=== PATIENT | female | born 1955 | race Caucasian/White ===

== ENCOUNTER 2022-04-28 07:46 | Observation (INO) ==
--- NOTE | 2022-04-09 11:09 | PAT Medication Instructions ---
Medication Instructions Date of Service April 09, 2022 Home Medications Magnesium 1 tab PO QPM aspirin 81 mg tablet,delayed release 81 mg PO QPM calcium cit 250 mg-mag 40 mg-D3 125 unit-zinc 3.75 mg-helicopter technician-compa tablet (Calcium Citrate Plus) 1 tab PO QPM diclofenac sodium 1 % topical gel 2 g topical BID docusate sodium 250 mg capsule (Stool Softener) 250 mg PO QPM ibuprofen 200 mg capsule 200 mg PO Q6H PRN levothyroxine 75 mcg tablet 75 mcg PO QAM multivitamin 1 tab PO QPM ASK your surgeon for instructions ibuprofen 200 mg capsule 200 mg PO Q6H PRN STOP taking 24 hours before surgery diclofenac sodium 1 % topical gel 2 g topical BID Take morning of surgery With a small sip of water, OTHERWISE NOTHING TO EAT OR DRINK AFTER MIDNIGHT: levothyroxine 75 mcg tablet 75 mcg PO QAM Take evening before surgery Magnesium 1 tab PO QPM aspirin 81 mg tablet,delayed release 81 mg PO QPM (unless directed otherwise by surgeon) calcium cit 250 mg-mag 40 mg-D3 125 unit-zinc 3.75 mg-helicopter technician-compa tablet (Calcium Citrate Plus) 1 tab PO QPM docusate sodium 250 mg capsule (Stool Softener) 250 mg PO QPM multivitamin 1 tab PO QPM Other Notes If you have any questions please call us at [phone] or [phone] or [phone] or [phone]
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
[~2022-04-28 07:46] MED LIST: ACETAMINOPHEN 500 MG TAB PO SCH; BUPIVACAINE 0.25% 30 ML VIAL ONE; BUPIVACAINE 0.5 % 5 MG/1 ML PF 10ML VIAL ONE; BUPIVACAINE LIPOSOME/PF 266 MG, BUPIVACAINE/EPINEPHRINE 50 ML, SODIUM CHLORIDE 0.9% 30 ... INFIL SCH; CeleBREX 200 MG CAP PO SCH; DEXAMETHASONE SOD INJ 4 MG/ML VIAL ONE; EPINEPHrine INJ 1 MG/ML AMP ONE; FAMOTIDINE 20 MG TAB PO SCH; LR 500ML BOLUS, THEN 15ML/HR IV SCH; LR 60ML/HR IV SCH; METOCLOPRAMIDE HCL 10 MG TABLET PO SCH; Scopolamine 1 MG TDSY TD SCH; TRANEXAMIC ACID 1,000 MG **IV Intra-op IV SCH; ceFAZolin 2000MG 2,000 MG/15 ML SYR IV SCH
[2022-04-28] MEDS ORDERED: ATROPINE SULFATE 0.1 MG/ML 10ML SYR IV PRN (08:49)
[2022-04-28] MEDS ORDERED: fentaNYL citrate 100 MCG/2 ML VIAL IV PRN (08:49)
[2022-04-28] MEDS ORDERED: ePHEDrine sulfate 50 MG/ML AMP IV PRN (08:49)
[2022-04-28] MEDS ORDERED: ONDANSETRON INJ 2 MG/ML 2 ML VIAL IV PRN ×2 (08:49→12:46)
--- NOTE | 2022-04-28 08:57 | History & Physical Bridge Note ---
Date of Service April 28, 2022 History & Physical Bridge Note I have examined the patient, reviewed the History & Physical and in the interval since the performance of the History & Physical I have noted the following changes of clinical significance: no changes noted
[2022-04-28] MEDS ORDERED: BUPIVACAINE LIPOSOME 1.3% 266 MG/20 ML VIAL ONE (09:03)
[2022-04-28] MEDS ORDERED: SODIUM CHLORIDE 0.9% PF 50 ML VIAL ONE (09:03)
[2022-04-28] MEDS ORDERED: BUPIVACAINE/EPINEPHRINE 0.25% 1:200,000 30 ML VIAL ONE (09:03)
[2022-04-28] MEDS ORDERED: PROPOFOL IV EMULSION 10 MG/ML 20 ML VIAL IV ONE (10:10)
[2022-04-28] MEDS ORDERED: ONDANSETRON INJ 2 MG/ML 2 ML VIAL ONE (10:10)
[2022-04-28] MEDS ORDERED: DEXAMETHASONE SOD INJ 4 MG/ML VIAL ONE (10:10)
[2022-04-28] MEDS ORDERED: KETOROLAC 30 MG/ML VIAL ONE (10:11)
[2022-04-28] MEDS ORDERED: MIDAZOLAM HCL 1 MG/ML 2ML VIAL ONE (10:11)
[2022-04-28] MEDS ORDERED: fentaNYL citrate 100 MCG/2 ML VIAL ONE (10:11)
[2022-04-28] MEDS ORDERED: ePHEDrine sulfate 50 MG/ML AMP ONE (10:33)
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
--- NOTE | 2022-04-28 11:50 | XRay Report ---
XR knee LT 1 or 2V routine CLINICAL HISTORY: Surgical Post Op TECHNIQUE: 2 views of the left knee were obtained. Comparison: Comparison is made to knee radiographs 03/20/2022 FINDINGS: Patient is status post total knee arthroplasty with expected postsurgical changes including soft tiss ue swelling and subcutaneous emphysema. No periarticular lucency or hardware fracture is seen. IMPRESSION: Expected postoperative appearance status post placement of total knee arthroplasty. ACT 112: Negative or not required by law. Electronically signed by: Toro Soriano M.D. 04/28/2022 11:49 AM
--- NOTE | 2022-04-28 12:38 | Anesthesiology Progress Note ---
Date of Service April 28, 2022 Anesthesia Post Procedure Vital Signs Vital Signs: Temp Pulse Pulse Resp BP Pulse Ox O2 Del Method 04/28/22 12:30 70 17 110/73 95 Room Air 04/28/22 12:15 36.5 C 65 13 120/74 95 Room Air 04/28/22 12:00 36.2 C L 76 17 126/72 96 Room Air 04/28/22 11:50 79 17 126/69 96 Room Air 04/28/22 11:40 73 12 130/77 96 Room Air 04/28/22 11:30 72 15 121/68 100 Oxymask 04/28/22 11:20 76 18 119/66 100 Oxymask 04/28/22 11:13 36 C L 82 14 116/69 99 Oxymask 04/28/22 08:42 36.8 C 75 20 179/91 H 98 O2 Flow Rate 04/28/22 12:30 04/28/22 12:15 04/28/22 12:00 04/28/22 11:50 04/28/22 11:40 04/28/22 11:30 6 04/28/22 11:20 6 04/28/22 11:13 6 04/28/22 08:42 Transfer of Care Handoff Completed per policy Notes Mental Status: alert / awake / arousable Patient Amnestic to Procedure: Yes Nausea / Vomiting: adequately controlled Pain: adequately controlled Airway Patency, RR, SpO2: stable & adequate BP & HR: stable & adequate Hydration State: stable & adequate Neuraxial Anesthesia: was administered and sensory block is resolving Anesthetic Complications: no major complications apparent and Pt Satisfied with anesthetic care
[2022-04-28] MEDS ORDERED: oxyCODONE HCL IR 5 MG TAB (IMMEDIATE RELEASE) PO PRN (12:46)
[2022-04-28] MEDS ORDERED: diphenhydrAMINE Capsule 25 MG CAP PO PRN (12:46)
[2022-04-28] MEDS ORDERED: MAGNESIUM HYDROXIDE SUSP 30 ML UDC PO PRN (12:46)
[2022-04-28] MEDS ORDERED: METOCLOPRAMIDE HCL INJ 5 MG/ML 2 ML VIAL IV PRN (12:46)
[2022-04-28] MEDS ORDERED: NALOXONE HCL 0.4 MG/1 ML VIAL/CARP IV PRN (12:46)
[2022-04-28] MEDS ORDERED: HYDROmorphone INJ 0.5 MG/0.5 ML SYR IV PRN (12:46)
[2022-04-28] MEDS ORDERED: ALUMINUM/MAGNESIUM SUSP 30 ML UDC PO PRN (12:46)
[2022-04-28] MEDS ORDERED: bisacodyL 10 MG SUPP PR PRN (12:46)
--- NOTE | 2022-04-28 14:27 | Progress Notes ---
DATE OF SERVICE: 04/28/2022 SUBJECTIVE: A 66-year-old female postoperative from a left knee replacement. She is doing quite wel l. Really not having much pain. The feeling has just come back in her legs. No chest pain or short ness of breath. Not feeling dizzy or lightheaded. OBJECTIVE: VITAL SIGNS: Temperature 36.5. Vital signs are stable. PHYSICAL EXAMINATION: GENERAL: Shows a pleasant, healthy middle-aged female. She is sitting up in bed, talking to her hus band and looks comfortable. LUNGS: Clear to auscultation. HEART: Regular rate and rhythm. ABDOMEN: Soft, nontender, nondistended. EXTREMITIES: Grossly neurovascularly intact except as follows: Examination of the left leg reveals the dressing to be clean, dry and intact. She can dorsiflex and plantarflex her foot appropriately. She is neurologically intact. Brisk refill. X-RAYS: X-rays of the left knee from recovery room are reviewed. It shows a cemented posterior base total knee arthroplasty. Components looked to be in good position. No signs of problems. She does have an obvious proximal tibial deformity from her malunion. ASSESSMENT: A 66-year-old female postoperative from left knee replacement, doing well. Pain is cont rolled. She is neurologically intact. PLAN: 1. DVT prophylaxis includes thigh-high TEDs, SCDs, and Xarelto and we will start that 24 hours posto p. 2. PT/OT, weightbear as tolerated. Left total knee protocol. 3. Pain control, doing okay with current pain regimen. We will have to adjust things as the spinal wears off. 4. Disposition: She is planning to be discharged to home, likely with some home health and then out patient therapy. Job ID: [id number]
[2022-04-28] MEDS: SODIUM CHLORIDE 0.9% 1000ML 1,000 ML IV SCH (15:13)
[2022-04-28] MEDS: ACETAMINOPHEN 500 MG TAB PO SCH ×2 (15:14→22:09)
[2022-04-28] MEDS: KETOROLAC TROMETHAMINE 15 MG/ML VIAL IV SCH ×2 (15:15→20:55)
[2022-04-28] MEDS: Scopolamine CHECK PATCH PLACEMENT SCH (15:25)
[2022-04-28] MEDS ORDERED: TRANEXAMIC ACID / 0.7% NACL 1,000 MG/100 ML BAG IV SCH (17:15)
[2022-04-28] MEDS: ASCORBIC ACID 500 MG TAB PO SCH (18:04)
[2022-04-28] MEDS: ceFAZolin 1000MG 1,000 MG/7.5 ML SYR IV SCH (18:08)
[2022-04-28] MEDS: DOCUSATE SODIUM 100 MG CAP PO SCH (20:55)
[2022-04-28] MEDS: TAPENTADOL HCL ER 50 MG TABCR PO SCH (20:55)
[2022-04-28] MEDS ORDERED: ASPIRIN 81 MG ECTAB PO SCH (21:00)
[2022-04-28] MEDS ORDERED: [UNRECOGNIZED DRUG - OTHER] PO SCH (21:00)
[2022-04-28] MEDS ORDERED: NON-FORMULARY MEDICATION (Docusate Sodium [Stool Softener] 250 mg Capsule) PO SCH (21:00)
[2022-04-28] MEDS ORDERED: NON-FORMULARY MEDICATION (Magnesium 1 TAB) PO SCH (21:00)
[2022-04-28] MEDS ORDERED: NON-FORMULARY MEDICATION (Multivitamin Tablet) PO SCH (21:00)
[2022-04-28] MEDS ORDERED: SENNA 8.6 MG TAB PO SCH (21:00)
[2022-04-29] MEDS: ceFAZolin 1000MG 1,000 MG/7.5 ML SYR IV SCH (00:57)
[2022-04-29] MEDS: SODIUM CHLORIDE 0.9% 1000ML 1,000 ML IV SCH (00:57)
[2022-04-29] MEDS: Scopolamine CHECK PATCH PLACEMENT SCH ×2 (00:57→08:17)
[2022-04-29] MEDS: KETOROLAC TROMETHAMINE 15 MG/ML VIAL IV SCH ×2 (03:29→08:17)
[2022-04-29] MEDS: ACETAMINOPHEN 500 MG TAB PO SCH (06:09)
[2022-04-29] MEDS ORDERED: LEVOTHYROXINE SODIUM 75 MCG TABLET PO SCH (06:30)
[2022-04-29] MEDS ORDERED: dexAMETHasone 10 MG in SYRINGE 0 ML IV SCH (08:00)
[2022-04-29] MEDS: ASCORBIC ACID 500 MG TAB PO SCH (08:17)
[2022-04-29] MEDS: DOCUSATE SODIUM 100 MG CAP PO SCH (08:17)
[2022-04-29] MEDS ORDERED: MULTIVITAMIN TAB PO SCH (09:00)
[2022-04-29] MEDS: TAPENTADOL HCL ER 50 MG TABCR PO SCH (09:05)
[2022-04-29 11:07] LABS: Hematocrit (blood only) 31.8 % (34.1-44.9); Hemoglobin 10.9 g/dl (12.0-16.0); Mean Corpuscular Hemoglobin 32.2 pg (25.0-34.0); Mean Corpuscular Hgb Conc 34.3 g/dL (32.0-36.0); Mean Corpuscular Volume 94.1 fL (80.0-100.0); Platelet Count 224 K/uL (130-400); RDW Coefficient of Variation 11.9 % (11.5-14.5); Red Blood Count 3.38 M/uL (3.93-5.22); White Blood Count 13.43 K/ul (4.8-10.8)
[2022-04-29 11:35] LABS: BUN Creatinine Ratio 14.8 (10-20); Creatinine Clr Calc Pharmacy 47.6 ml/min; Est GFR (African American) 80.5 ml/min; Est GFR (Non-African American) 69.4 ml/min; Potassium 3.9 mmol/L (3.5-5.1)
[2022-04-29] MEDS ORDERED: RIVAROXABAN 2.5 MG TAB PO SCH (12:00)
[2022-04-29] MEDS ORDERED: RIVAROXABAN 10 MG TABLET PO SCH (12:00)
--- NOTE | 2022-04-29 13:31 | Progress Notes ---
DATE OF SERVICE: 04/29/2022 SUBJECTIVE: A 66-year-old female postoperative day 1 from left knee replacement. She is doing quite well. She has a little bit of thigh discomfort more than anything. Therapy went well. She is kenaitze ng to go home. OBJECTIVE: VITAL SIGNS: Temperature 37.0. Vital signs are stable. PHYSICAL EXAMINATION: GENERAL: Shows a pleasant middle-aged female. She is sitting up in bed, talking to her and looks comfortable. EXTREMITIES: Examination of the left leg reveals the dressing to be clean, dry and intact. She can dorsiflex and plantarflex her foot appropriately. NEUROLOGIC: She is neurologically intact. LABORATORY DATA: Hemoglobin 10.9. Hematocrit 31.8. Electrolytes are stable. Kidney function is no rmal. ASSESSMENT: A 66-year-old female postoperative day 1 from left knee replacement, doing well. Pain i s controlled. She is neurologically intact. PLAN: 1. DVT prophylaxis includes thigh-high TEDs, SCDs, and we are going to use Xarelto for 1 month. 2. PT/OT, weightbear as tolerated. Left total knee protocol. 3. Pain control, doing okay with current pain regimen. 4. Disposition: Plan to discharge her home and she is going to have home health for the first 2 wee md. Job ID: [id number]
--- NOTE | 2022-05-04 07:39 | Discharge Summary ---
Date of Service May 04, 2022 Discharge Data Procedures Performed Operation Date: 04/28/22 10:40 Actual Procedures p Left Total Knee Arthroplasty(Left) - Butch Conteh MD Hospital Course (1) Status post total left knee replacement: This is a 66 year old admitted on 04/28/22 and underwent total knee arthroplasty. She tolerated the procedure well and there were no complications. Transferred to the PACU post op and later to the orthopedic floor for further care. She was given ancef for antibiotic prophylaxis. She was also given CARMINA stockings, SCDs, and xarelto for DVT prophylaxis. Hemoglobin, hematocrit, and vital signs were monitored during her hospital stay and remained stable. Did not require any blood transfusions. There were no complications during her hospital stay. By post op day #1 the patient was tolerating a regular diet, pain was reasonably controlled with oral pain medicine, and she was participating in physical therapy. On post op day #1 the patient was discharged home and set up with home health care. She was given printed discharge instructions including prescriptions for extra strength tylenol, xarelto, zofran, senokot, and oxycodone. Continue physical therapy, weight bearing as tolerated. Continue CARMINA stockings. Follow up approximately 2 weeks post op or sooner if there are problems or concerns. Coding Level of Care Code None Diagnoses Status post total left knee replacement Z96.652
== END 2022-04-29 14:16 | disposition home health service (06) ==
LOC: 3E 07:46 → ASU 07:46